=== PATIENT | male | born 1985 | race Caucasian/White ===

== ENCOUNTER 2018-08-03 19:11 | Emergency (ER) | payer BC, SELFPAY ==
[2018-08-03 19:12] VITALS: BP 148/89; PULSE 90; RESP 17; RESP 18; TEMP 36.5; BMI 25.7
--- NOTE | 2018-08-03 19:22 | RAD_ITS ---
STUDY: X-RAY - LEFT HAND, ATTENTION SECOND FINGER REASON FOR EXAM: Male, 33 years old. Injury TECHNIQUE: 3 view(s) of the finger were obtained. COMPARISON: None. FINDINGS: Normal metacarpal head. Normal metacarpophalangeal joint. Normal proximal phalanx. Normal middle phalanx. Comminuted fracture involving the distal phalanx. Normal proximal interphalangeal joint. Normal distal interphalangeal joint. Distal soft tissue injury of the digit. RAD/Finger(s) Min 2 Views IMPRESSION: Distal phalangeal fracture. Electronically Signed: Raymundo Hernandez DO at 20:03 EST Tel [phone], Service support ,
--- NOTE | 2018-08-03 20:28 | ED.VISSUMM ---
- ER Visit Summary Date of Service: 08/03/18 Chief Complaint: Crush injury left index finger History of Present Illness: The patient is a 33 M who is right-handed presents with question injury to the left index finger. Tetanus shot 1 year ago. He denies paresthesia, anesthesia motor weakness. He denies any other complaints. He is on no anticoagulant. He has no antibiotic allergies. Physical Examination: The distal three fourths of the nail left index finger has been avulsed. There is an obvious nailbed injury with laceration radial and ulnar side of the nailbed. Two-point discrimination is abnormal on the ulnar side. Two-point determination normal on the radial side. The extensor indices tendon is intact. The flexor digitorum superficialis and flexor digitorum profundus are intact. Cap refill is normal. Test Results: Three-view x-ray of the finger reveals a displaced fracture distal phalanx. Emergency Department Course and Treatment: X-ray was obtained to delineate the extent of the fracture. The finger was anesthetized by digital block with 4 cc of 1% lidocaine without epinephrine. The remaining portion of the nail was removed. The wound was irrigated with 250 cc of normal saline. The nail bed was repaired using 5-0 Vicryl. 4 simple interrupted sutures were placed. The skin was closed using 5-0 Ethilon. Total length of skin laceration 2.2 cm. Nailbed laceration 1.5 cm Vaseline gauze was placed under the cuticle. Patient received 1 g of Ancef and was discharged with prescription for cephalexin. Treatment Plan: Outpatient follow-up with orthopedics in 48 hours Disposition: Discharged home in stable improved condition Impression: 1. Open distal phalanx fracture left index finger 2. Partially avulsed nail 3. Removal of distal half of nail 4. Nailbed repair 5. Repair of skin laceration 6. Distal digital nerve injury ulnar side left index finger This note was generated with [employer] dictation software. It may contain incorrect words, spelling, and punctuation that were not noted in review of the chart prior to signing ED Disposition - Plan for ED Patient: Disposition: Home or Assisted Living Chief Complaint: Laceration Instructions: ED Fx Finger Open, ED Avulsion Nail Complete Prescriptions: Cephalexin [Keflex] 500 mg PO 4X/DAY #20 cap Referrals: Care Physician,No Primary [Primary Care Provider] - Radha Nash DO [STAFF PHYSICIAN] - 2 Days for wound check
[2018-08-03 21:10] VITALS: RESP 18
== END 2018-08-03 21:11 | disposition home or self-care (01) ==
PROVIDERS: Emergency Provider Emergency Medicine
DX: S62.631B Displaced fracture of distal phalanx of left index finger, initial encounter for open fracture (principal); S64.491A Injury of digital nerve of left index finger, initial encounter; X58.XXXA Exposure to other specified factors, initial encounter; Y93.9 Activity, unspecified; Y92.9 Unspecified place or not applicable; Y99.9 Unspecified external cause status
CPT/HCPCS: 11760; 12001; 73140; 96372; 99283

== ENCOUNTER → 2018-08-17 11:16 | Outpatient (CLI) | payer OTHER, SELFPAY ==
[2018-08-04 18:02] VITALS: BMI 25.7
--- NOTE | 2018-08-17 11:18 | RAD_ITS ---
STUDY: X-RAY - LEFT HAND, ATTENTION SECOND FINGER REASON FOR EXAM: Fracture follow-up. TECHNIQUE: 3 view(s) of the finger were obtained. COMPARISON: Radiographs 08/03/2018. FINDINGS: Normal metacarpal. Normal metacarpophalangeal joint. Normal proximal phalanx. Normal middle phalanx. There is a mildly comminuted fracture of the base of the ungual tuft with slightly less distraction of the major distal fragment in comparison to the prior study. Normal proximal interphalangeal joint. Normal distal interphalangeal joint. RAD/Finger(s) Min 2 Views IMPRESSION: Distal phalangeal fracture. Electronically Signed: Cas Underwood MD at 14:52 EST Tel , Service support ,
== END ==
PROVIDERS: Referring Provider Physician Assistant; Visit Provider Physician Assistant
DX: S61.311A Laceration without foreign body of left index finger with damage to nail, initial encounter (principal); S62.631B Displaced fracture of distal phalanx of left index finger, initial encounter for open fracture
CPT/HCPCS: 73140

== ENCOUNTER 2018-08-17 12:21 | Outpatient (RCR) | payer OTHER, SELFPAY ==
[2018-08-04 18:02] VITALS: BMI 25.7
--- NOTE | 2018-08-18 08:49 | HP.OTEVAL ---
Patient's Visit Information SHASHANK MCKAY is a 33 year old M, referred to Occupational Therapy by MARTI Draper, with a diagnosis of . Date of Evaluation: 08/17/18 Occupational Therapist: Theresa El, JERRY/JAMIE Vaughn - Subjective Subjective: This 33 year old male was seen for intial JERRY/JAMIE Vaughn with dx of IF tuff fx- pt arrives from dr office in need of custom orthosis to provide protection/support while fx is healing. request placing DIP in slight hyperextension- pt states 2 weeks ago he was placing wood in wood burner and crushed the tip of his finger between the wood burner door and log. - ROM DIP: not tested while fx is healing - Strength Strength Comments: NT healing fracture - Sensation Sensation Comments: denies - Goals Goal:: Client will demo understanding of orthosis donning/doffing, skin care and use by end of 1st visit- pt demo understanding of orthosis use and precautions and if any of the precautions arise client is to return for new othosis. - Rehabilitation General Assessment: Pt demo need for custom orthosis for tuff fx. Today OTR/JAMIE Vaughn jesus. custom orthosis keeping PIP free and allowing for slight DIP hyperextension per request. Client was ed. on use of orthosis donning/doffing, skin care and precautions this visit- pt demo understanding of orthosis use and precautions and if any of the precautions arise client is to return for new othosis. Rehabilitation Potential: Good - Anticipated Interventions Anticipated Interventions: Wound Care, Orthoses - Visit Plan TEXT: Thank you for the opportunity to evaluate your patient. For Medicare and Medicare HMO plans, please review the plan of care and approve it. It will need to be FAXED BACK to us at [phone] for Medicare purposes. Please let me know if there are questions or concerns regarding this plan of care. Physician Signature: Date:
--- NOTE | 2018-10-09 14:37 | HP.OT.NRP ---
HP - Discharge Summary - Patient Information SHASHANK MCKAY was seen in my office for initial evaluation on 08/17/18. The following Plan of Care was established for this patient: - Anticipated Interventions Anticipated Interventions: Wound Care, Orthoses This patient was last seen in our office 08/17/18. Pertinent comments regarding their Occupational therapy will appear below: Pt was seen for custom orthosis for tuff fx. pt was to return to have orthosis adj as needed. pt has not done so at this time. Pt d/c at this time due to timelapse in services. At this point I will be discontinuing this patient from occupational therapy. I would be happy to see this patient again in the future if found appropriate by the physician. Thank you! Theresa El, OTR/L, CHT
== END 2018-08-17 19:00 | disposition home or self-care (01) ==
LOC: OT 12:21
PROVIDERS: Referring Provider Physician Assistant; Visit Provider Physician Assistant
DX: S62.631D Displaced fracture of distal phalanx of left index finger, subsequent encounter for fracture with routine healing (principal)
CPT/HCPCS: 97165; 97760

== ENCOUNTER → 2018-09-11 13:34 | Outpatient (CLI) | payer OTHER, SELFPAY ==
[2018-08-28 13:15] VITALS: BMI 25.7
--- NOTE | 2018-09-11 13:38 | RAD_ITS ---
STUDY: X-RAY - LEFT HAND REASON FOR EXAM: Male, 33 years old. Follow-up index finger TECHNIQUE: 3 view(s) of the hand. COMPARISON: 08/17/2017, 08/03/2018. FINDINGS: Soft tissue derangement of the 2nd digit in the region of the nailbed. Horizontal fracture traversing the distal tuft of the 2nd digit. There is no apparent bridging callus formation as yet. There are no defined osteolytic features of the bone to suggest acute osteomyelitis. RAD/Hand Min 3 Views IMPRESSION: Distal tuft 2nd digit fracture without bridging callus formation. No convincing osteolytic features to suggest osteomyelitis. Electronically Signed: Hector Sanchez MD at 17:50 EST Tel , Service support ,
== END ==
PROVIDERS: Referring Provider Physician Assistant; Visit Provider Physician Assistant
DX: S61.311A Laceration without foreign body of left index finger with damage to nail, initial encounter (principal)
CPT/HCPCS: 73130